=== PATIENT | male | born 2000 | race Caucasian/White ===

== ENCOUNTER 2022-01-25 16:47 | Emergency (ER) | payer OTHER ==
[~2022-01-25] VITALS: Ht 177.8 cm; Wt 69.6 kg
[2022-01-25 16:49] VITALS: BP 167/64
[2022-01-25] MEDS ORDERED: CETI10CH PO (16:56)
[2022-01-25 18:09] LABS: AMORPHOUS SEDIMENT SMALL (NEGATIVE); APPEARANCE, URINE HAZY (CLEAR); BACTERIA, URINE AUTO NEGATIVE (NEGATIVE); BILIRUBIN, URINE AUTO NEGATIVE (NEGATIVE); BLOOD, URINE BLOOD NEGATIVE (NEGATIVE); COLOR, URINE YELLOW (YELLOW); GLUCOSE, URINE (UA) AUTO NEGATIVE (NEGATIVE); KETONE, URINE AUTO NEGATIVE (NEGATIVE); LEUKOCYTE ESTERASE, URINE AUTO NEGATIVE (NEGATIVE); MUCUS, URINE SMALL (NEGATIVE); NITRITE, URINE AUTO NEGATIVE (NEGATIVE); PROTEIN, URINE AUTO NEGATIVE (NEGATIVE); RBC, URINE AUTO 0 /HPF (0-3); SPECIFIC GRAVITY URINE AUTO 1.023 (1.002-1.035); SQUAMOUS EPITHELIAL CELL UR AU 0 /HPF (0-6); UROBILINOGEN, URINE AUTO 0.2 mg/dL (0.0-2.0); WBC, URINE AUTO 1 /HPF (0-3)
== END 2022-01-25 19:47 | disposition home or self-care (01) ==
LOC: M ED 16:47
DX: N50.811 Right testicular pain (principal)

== ENCOUNTER 2022-08-29 06:14 | Emergency (ER) | payer OTHER ==
[~2022-08-29] VITALS: Ht 177.8 cm; Wt 66.8 kg
[~2022-08-29 06:14] MED LIST: CETI10CH PO
[2022-08-29] MEDS ORDERED: ACETAMINOPHEN 500 MG TAB PO ONE (06:20)
[2022-08-29] MEDS ORDERED: BENZ1LOZ9 PO (07:49)
[2022-08-29] MEDS ORDERED: IBUP80TA PO (07:49)
[2022-08-29 07:58] VITALS: BP 125/61
[2022-08-29] MEDS ORDERED: IBUPROFEN 800 MG TAB PO ONE (08:15)
[2022-08-29 09:14] LABS: MONO REFLEX EBV COMP NEGATIVE (NEGATIVE)
[2022-08-30 17:07] LABS: EBV VIRAL CAPSID AG IgM <36.0 U/mL (0.0-35.9)
== END 2022-08-29 08:40 | disposition home or self-care (01) ==
LOC: M ED 06:14
DX: H92.02 Otalgia, left ear (principal); B34.9 Viral infection, unspecified; Z79.899 Other long term (current) drug therapy

== ENCOUNTER 2022-09-13 18:00 | Day surgery (SDC) | payer OTHER ==
[~2022-09-13] VITALS: Ht 177.8 cm; Wt 68.2 kg
[~2022-09-13 18:00] MED LIST changes: +BENZ1LOZ9 PO; +IBUP80TA PO
[2022-09-13] MEDS ORDERED: ONDANSETRON 4MG 2ML VIAL IV ONE (20:55)
[2022-09-13] MEDS: MORPHINE 4 MG/ML 1ML VIAL IV PRN ×2 (21:04→23:12)
[2022-09-13] MEDS ORDERED: HOME MED LIST COMPLETE! XX SCH (21:20)
[2022-09-13 21:43] LABS: RSV AMPLIFICATION NEGATIVE (NEGATIVE)
[2022-09-13] MEDS ORDERED: BACITRACIN OINTMENT 30GM TUBE As Ordered ONE (21:53)
[2022-09-13] MEDS ORDERED: BUPIVACAINE HCL 0.25% 30ML VIAL As Ordered ONE (21:53)
[2022-09-13] MEDS ORDERED: LIDOCAINE 1% SDV 30ML VIAL As Ordered ONE (22:07)
[2022-09-13] MEDS ORDERED: LIDOCAINE 2% 100MG/5ML SDV (FOR ANES.) As Ordered ONE (22:25)
[2022-09-13] MEDS ORDERED: fentaNYL 250 MCG/5 ML INJECTION As Ordered ONE (22:25)
[2022-09-13] MEDS ORDERED: propofoL 200 MG/20 ML VIAL As Ordered ONE (22:25)
[2022-09-13] MEDS ORDERED: MIDAZOLAM INJ 2MG/2ML VIAL As Ordered ONE (22:26)
[2022-09-13] MEDS ORDERED: ROCURONIUM BROMIDE 50MG/5ML VIAL As Ordered ONE (22:26)
[2022-09-13] MEDS ORDERED: ceFAZolin 2 GM/D5W 50 ML IV BAG As Ordered ONE (22:40)
[2022-09-13] MEDS ORDERED: ACETAMINOPHEN 1000MG 100ML IV BAG As Ordered ONE (22:49)
[2022-09-13] MEDS ORDERED: ONDANSETRON 4MG 2ML VIAL As Ordered ONE (22:49)
[2022-09-13] MEDS ORDERED: KETOROLAC 60MG 2ML VIAL As Ordered ONE (23:01)
[2022-09-13] MEDS ORDERED: SUGAMMADEX SODIUM 500 MG/5 ML VIAL (BRIDION) As Ordered ONE (23:01)
[2022-09-13] MEDS ORDERED: DESFLURANE 240 ML INHALANT As Ordered ONE (23:04)
[2022-09-13] MEDS ORDERED: METOCLOPRAMIDE INJ 10MG/2ML VIAL IV PRN (23:45)
[2022-09-13] MEDS ORDERED: PROMETHAZINE 25MG/ML 1ML VIAL IV PRN (23:45)
[2022-09-13] MEDS ORDERED: ONDANSETRON 4MG 2ML VIAL IV PRN (23:45)
[2022-09-13] MEDS ORDERED: LR 1,000 ML IV SCH (23:45)
[2022-09-13] MEDS ORDERED: HYDROMORPHONE HCL 0.5 MG/ 0.5 ML SYRINGE IV PRN (23:45)
[2022-09-13] MEDS ORDERED: fentaNYL 100 MCG/2 ML INJECTION IV PRN (23:45)
[2022-09-13] MEDS ORDERED: OXYC1TAB23 PO (23:54)
[2022-09-14] VITALS (7 sets, daily range): BP systolic 104–134; BP diastolic 53–80
[2022-09-14] MEDS ORDERED: NS 1,000 ML IV SCH
[2022-09-14] MEDS ORDERED: MORPHINE 2 MG/ML 1ML VIAL IV PRN
[2022-09-14] MEDS ORDERED: PERCOCET 5MG/325MG TAB PO PRN (00:10)
[2022-09-14] MEDS ORDERED: ONDANSETRON 4MG 2ML VIAL IV PRN (00:10)
[2022-09-14] MEDS ORDERED: ACETAMINOPHEN 500 MG TAB PO PRN (00:10)
[2022-09-14] MEDS ORDERED: DOCUSATE SODIUM 100MG CAPSULE PO SCH (09:00)
== END 2022-09-14 08:47 | disposition home or self-care (01) ==
LOC: M ED 18:00 → M CLINICFL 18:00 → M SDC 18:01 → M MSPAV 09-14 00:21 → M SDC 09-14 08:47 → M ED 09-14 09:10
PROVIDERS: ATTEND Urology
DX: N44.00 Torsion of testis, unspecified (principal)
CPT/HCPCS: 54600; 76870; 87631; 88304; 88307; 93976; 96361; 96374; 96375; 99284; J0131; J0690; J1100; J1885; J2250; J2270; J2405; J3010; S0020

== ENCOUNTER 2023-01-12 18:30 | Emergency (ER) | payer OTHER ==
[~2023-01-12] VITALS: Ht 177.8 cm; Wt 68.9 kg
[~2023-01-12 18:30] MED LIST changes: +OXYC1TAB23 PO
[2023-01-12] MEDS ORDERED: DOXY-443 PO (19:43)
[2023-01-12] MEDS ORDERED: DOXYCYCLINE HYCLATE 100MG TABLET PO ONE (19:45)
[2023-01-12 19:49] VITALS: BP 134/94
[2023-01-12 19:59] LABS: BASO # 0.1 10^3/uL (0.0-0.2); BASO % 0.4 % (0.0-1.0); EOS # 0.2 10^3/uL (0.0-0.5); EOS % 1.3 % (0.0-3.0); HEMATOCRIT 42.2 % (42.0-52.0); HEMOGLOBIN 15.2 g/dl (13.5-17.5); LYMPH % 14.5 % (24.0-44.0); MEAN CORPUSCULAR HEMOGLOBIN 29.9 pg (27.0-33.0); MEAN CORPUSCULAR VOLUME 83.1 fl (80.0-96.0); MONO # 0.9 10^3/uL (0.0-0.8); MONO % 6.4 % (2.0-8.0); NEUTROPHILS # 10.3 10^3/uL (1.5-8.5); PLATELET COUNT, AUTOMATED 220 10^3/uL (150-450); RED BLOOD COUNT 5.08 10^6/uL (4.30-6.10); WHITE BLOOD COUNT 13.4 10^3/uL (4.0-10.0)
== END 2023-01-12 19:53 | disposition home or self-care (01) ==
LOC: M ED 18:30
DX: S80.861A Insect bite (nonvenomous), right lower leg, initial encounter (principal); W57.XXXA Bitten or stung by nonvenomous insect and other nonvenomous arthropods, initial encounter; Y92.89 Other specified places as the place of occurrence of the external cause; Y93.89 Activity, other specified; Y99.8 Other external cause status

== ENCOUNTER 2025-05-01 09:28 | Day surgery (SDC) | payer OTHER ==
[~2025-05-01] VITALS: Ht 177.8 cm; Wt 75.7 kg
[~2025-05-01 09:28] MED LIST changes: +CETI-24; +DOXY-441 PO; +MIDAZOLAM INJ 2 MG/2 ML VIAL As Ordered ONE
[2025-05-01] MEDS ORDERED: SUGAMMADEX SODIUM 500 MG/5 ML VIAL As Ordered ONE (09:30)
[2025-05-01] MEDS ORDERED: dexAMETHasone 4 MG/ML 1 ML VIAL As Ordered ONE (09:30)
[2025-05-01] MEDS ORDERED: ONDANSETRON 4MG 2ML VIAL As Ordered ONE (09:30)
[2025-05-01] MEDS ORDERED: ROCURONIUM BROMIDE 50MG/5ML VIAL As Ordered ONE (09:30)
[2025-05-01] MEDS ORDERED: LIDOCAINE 2% 100 MG/5 ML SDV (FOR ANES.) As Ordered ONE (09:30)
[2025-05-01] MEDS ORDERED: LR 1,000 ML IV SCH ×2 (09:40→11:50)
[2025-05-01] MEDS: METHYLENE BLUE 0.5% (5 MG/ML) 10 ML AMP As Ordered ONE (10:32)
[2025-05-01] MEDS: OXYMETAZOLINE 0.05% NASAL SPRAY As Ordered ONE (10:49)
[2025-05-01] MEDS: COCAINE 4% 4 ML NASAL SOLUTION BTL As Ordered ONE (11:10)
[2025-05-01] MEDS ORDERED: ACETAMINOPHEN 1000MG/100ML IV BAG As Ordered ONE (11:15)
[2025-05-01] MEDS ORDERED: dexmedeTOMIDine (4 MCG/ML) 200 MCG/50 ML BTL As Ordered ONE (11:15)
[2025-05-01] MEDS: LIDOCAINE W/EPINEPHrine 1% 20 ML VIAL As Ordered ONE (11:45)
[2025-05-01] MEDS ORDERED: HYDROMORPHONE HCL 0.5 MG/0.5 ML SYRINGE IV PRN (11:50)
[2025-05-01] MEDS: ONDANSETRON 4MG 2ML VIAL IV PRN (13:12)
[2025-05-01 13:50] VITALS: BP 121/64; TEMP 97.4; O2SAT 100
== END 2025-05-01 14:37 | disposition home or self-care (01) ==
LOC: M SDC 09:28
PROVIDERS: ATTEND Otolaryngology
DX: J34.2 Deviated nasal septum (principal); J34.3 Hypertrophy of nasal turbinates; Z79.899 Other long term (current) drug therapy
CPT/HCPCS: 30140; 30520; C9143; J0131; J1100; J2250; J2405; J3010